=== PATIENT | female | born 1965 | race Caucasian/White ===

== ENCOUNTER 2021-06-19 15:25 | Emergency (ER) | payer OTHER, SELFPAY ==
[2021-06-19 15:41] VITALS: BP 145/96; PULSE 81; RESP 16; TEMP 36.3; O2SAT 100
--- NOTE | 2021-06-19 16:47 | PC.NURSE ---
patient reports that the wait is too long and left the er
== END 2021-06-20 03:11 | disposition left against medical advice (07) ==
DX: R10.9 Unspecified abdominal pain (principal)
CPT/HCPCS: 99199

== ENCOUNTER 2021-07-16 18:08 | Emergency (ER) | payer BC, MEDICAID, SELFPAY ==
[2021-07-16 18:20] VITALS: BP 159/127; PULSE 102; RESP 16; TEMP 37.1; O2SAT 99
--- NOTE | 2021-07-16 18:20 | ED.CHESTPAIN ---
HPI - Chest Pain General Stated Complaint: Blood Pressure Time Seen by Provider: 07/16/21 18:20 Source: patient, RN notes reviewed and old records reviewed Mode of arrival: ambulatory Limitations: no limitations History of Present Illness HPI narrative: 55-year-old female presents to the [facility] with complaints of elevated blood pressure, states it was 240/110 on her home machine. States has been going for 2 weeks and states she has had chest heaviness, headaches nausea and vomiting associated with the pain. Was talking to her friend who is an ICU nurse at [facility], friend told her to go to the emergency room. Patient states I do not have time to go to the ER and sit in the waiting room. Came here requesting blood pressure medication. Explained to patient that we would have to transfer her because we do blood pressure medication or ways for diagnoses, lab. Discussed with patient doing and EKG and transfer. Patient states unhealthy as a horse. I just need medications to bring my blood pressure down. Discussed current blood pressure and signs and symptoms of a stroke which patient states you are scaring me. Patient declined transfer, EKG, got up and walked out with a normal gait. Unable to complete full assessment due to patient leaving Review of Systems Review of Systems: All systems reviewed & are unremarkable except as noted in HPI and below Constitutional: Constitutional: Reports no additional constitutional complaints, Denies chills and Denies fever(s) Eyes: Eyes: Reports no additional eye complaints, Denies change in vision and Denies photophobia ENT: Reports system reviewed and no additional complaints, except as documented Cardiovascular: Cardiovascular: Reports as per HPI, Reports chest pain, Reports rapid heart rate and Denies radiating jaw, neck or arm pain Respiratory: Respiratory: Reports as per HPI, Denies cough, Reports dyspnea and Denies wheezing Gastrointestinal: Gastrointestinal: Reports as per HPI, Reports nausea and Reports vomiting Musculoskeletal: Musculoskeletal: Reports no additional musculoskeletal complaints Neurologic: Reports as per HPI, Denies confusion, Denies vertigo, Denies dizziness, Denies syncope, Reports headache(s), Denies focal weakness, Denies numbness and Denies weakness Psychiatric: Psychiatric: Reports as per HPI and Reports anxiety Allergic/Immunologic: Allergic/Immunologic: Reports no additional allergic/immunologic complaints PMFSH Past Medical History Medical History (Updated 07/16/21 @ 19:05 by Haydee Mcgarry) No significant medical problems Surgical History Surgical History (Updated 07/16/21 @ 19:02 by Haydee Mcgarry) No pertinent past surgical history Social History Social History (Updated 07/16/21 @ 19:02 by Haydee Mcgarry) Occupation/Education: occupation Additional occupation/education comments: [employer] Gender identity (if verbalized by the patient): Female Comments At the time of my signature, I reviewed and agree with the nursing past medical, surgical, social, and family history. There is no relevant family history pertinent to the patient complaint. Exam Narrative: Unable to do complete physical exam due to patient walking out Const: General: healthy appearing, well developed, alert and anxious Nutritional Appearance: well nourished Orientation/consciousness: patient oriented x3 Skin: General skin exam: normal color Neuro: General: patient oriented x3, moves all extremities, no meningeal signs and no focal motor deficits Speech: normal speech Gait exam (Neuro): Normal gait present Psych: Appearance: grossly normal and well kempt Affect: Anxious affect present Course Course Level of Care: Express Care Visit Vital Signs Vital signs: Vital Signs Temperature 98.7 F 07/16/21 18:20 Pulse Rate 102 H 07/16/21 18:20 Respiratory Rate 16 07/16/21 18:20 Blood Pressure 159/127 H 07/16/21 18:20 Pulse Oximetry 9
== END 2021-07-16 18:30 | disposition left against medical advice (07) ==
PROVIDERS: Emergency Provider Nurse Practitioner
DX: R51.9 Headache, unspecified (principal); R07.9 Chest pain, unspecified; R03.0 Elevated blood-pressure reading, without diagnosis of hypertension
CPT/HCPCS: 99211; G0463

== ENCOUNTER 2022-03-20 17:38 | Emergency (ER) | payer OTHER, BC, MEDICAID, SELFPAY ==
--- NOTE | ~2022-03-20 | XR_ITS ---
EXAM: XR shoulder LT min 2V DATE: 03/20/2022 18:05 HISTORY: FALL, WEEK AGO, LT SHOULDER PAIN . COMPARISON: None available. FINDINGS: Normal mineralization. No fracture or dislocation. No lytic or blastic lesion. Degenerativ e changes at the acromioclavicular and glenohumeral joints. No erosion or periosteal change. Soft tis sues within normal limits. IMPRESSION: No acute osseous finding in the left shoulder. Reviewed, dictated and finalized at location K.
--- NOTE | 2022-03-20 17:45 | ED.UPPEXIN ---
HPI - Extremity Injury (Upper) General Chief Complaint: Extremity Injury, Upper Stated Complaint: Fall Injury Left Arm Source: patient and RN notes reviewed Mode of arrival: ambulatory Limitations: no limitations History of Present Illness HPI narrative: 56-year-old female presents concern for left shoulder and arm pain. She reports 1 week ago while at work she fell causing pain to the left arm. She reports pain with raising the arm and difficulty raising the arm. She denies any lacerations, abrasions, bruising. She denies any intervention. She denies decree strength, sensation. MD complaint: injury to: left and arm Related Data Allergies Allergy/AdvReac Type Severity Reaction Status Date / Time No Known Allergies Allergy Verified 03/20/22 17:56 Review of Systems Review of Systems: CONSTITUTIONAL: Denies malaise, chills, sweats, or fever. SKIN: Denies rash or itching, open skin, laceration, abrasion, redness, warmth, swelling. MUSCULOSKELETAL: Reports left shoulder pain NEUROLOGIC: Denies numbness, weakness All systems reviewed & are unremarkable except as noted in HPI and below PMFSH Past Medical History Medical History (Updated 03/20/22 @ 18:30 by Haydee Menezes NP) No significant medical problems Surgical History Surgical History (Updated 07/16/21 @ 19:02 by Haydee Mcgarry APRN) No pertinent past surgical history Social History Social History (Updated 07/16/21 @ 19:02 by Haydee Mcgarry APRN) Additional occupation/education comments: [employer] Gender identity (if verbalized by the patient): Female Comments At time of signature, agree with nursing past medical, surgical, social and family history. There is no relevant family history pertinent to the presenting complaint Exam Narrative: GENERAL: Well-appearing, well-nourished, and in no acute distress. HEAD: Normocephalic, atraumatic. EYES: PERRLA, conjunctivae clear NECK: Supple. CHEST: Speaks in full sentences. No respiratory distress. HEART: Regular rate and rhythm. Normal and equal peripheral pulses. EXTREMITIES: Left shoulder has normal strength and sensation, limited range of motion. No edema or ecchymosis. 5/5 strength with shoulder abduction, abduction, flexion and extension. Normal sensation with sensitivity to light touch and pain. Shoulder joint tenderness. No open wounds, no skin tenting, no devitalized tissue or atrophy, no trophic changes, no obvious deformity, alignment normal, nearby joints and structures intact. Distal pulses palpable and equal bilaterally, skin warm, dry, pink. Capillary refill less than 3 seconds. SKIN: Warm, dry, no rash. NEURO: Alert and oriented x3. PSYCH: Normal mood and affect Course Course Emergency Course: Patient is aware of diagnosis, understands and agrees to treatment plan. Anticipatory guidance given. Patient agrees to follow-up as directed and is aware of reasons to seek care at the emergency department. Portions of this record may have been created with voice recognition software Level of Care: Express Care Visit Vital Signs Vital signs: Reviewed. MDM - Extremity Injury (Upper) MDM Narrative Medical decision making narrative: Patients injury and pain is consistent with musculoskeletal etiology. No signs of neurological or vascular compromise on exam. Compartments and tissues are soft without signs of compartment syndrome. Pain is felt appropriate for further evaluation on an outpatient basis. Critical Care Time Critical Care Time Critical Care Time: No Discharge Plan Discharge Clinical Impression: Shoulder sprain Patient Disposition: Home, Self-Care Condition: Stable Instructions: Shoulder Sprain (ED) Additional Instructions: Avoid activities that cause pain until the pain subsides. Ice to the area 20-30 minutes 4-6 times a day Tylenol for lesser pain Ibuprofen regularly for the next 2-3 days for the inflammation Take muscle relaxer every 8 hours as
[2022-03-20 17:53] VITALS: BP 164/98; PULSE 82; RESP 16; TEMP 36.6; O2SAT 98
[2022-03-20 17:56] VITALS: BP 164/98; PULSE 82; RESP 16; TEMP 36.6; O2SAT 98
== END 2022-03-20 18:36 | disposition home or self-care (01) ==
PROVIDERS: Emergency Provider Nurse Practitioner
DX: S43.402A Unspecified sprain of left shoulder joint, initial encounter (principal); W19.XXXA Unspecified fall, initial encounter; Y99.0 Civilian activity done for income or pay; I10 Essential (primary) hypertension
CPT/HCPCS: 73030; 99213; G0463